=== PATIENT | female | born 1955 | race African-American/Black ===

== ENCOUNTER 2018-04-01 01:43 | Inpatient (IN) | payer OTHER ==
--- NOTE | 2018-03-23 15:30 | History & Physical Pre-Op ---
General Information and [facility] MD Statement: I have seen and personally examined KAILYN JAEGER and documented this H&P. The patient is a 62 year old F who presented with a patient stated chief complaint of neck stiffnes with progressively worsening right arm and hand weakness and maladroitness. Source of Information: patient Exam Limitations: no limitations History of Present Illness: Kailyn is a 62-year-old female who presents with progressively worsening right arm and right hand weakness and maladroitness. She has had similar symptoms in 1998 but states that over the last 6 months, she's had progressively worsening symptoms that include involuntary contractures of the right first and second digit with numbness and tingling in her right arm and hand. She also complains of some atrophy in her right hand and thumb. She complains of stiffness in her neck but no significant neck pain or radiating arm pain. She is having difficulty using her right dominant hand with writing or with fine dexterity. Her MRI shows severe spinal stenosis at C4-5, C5-6, and C6-7 with cord compression. Due to the fact that Kailyn has been experiencing progressively worsening motor dysfunction as well as her MRI findings, she wants nothing more to do with nonsurgical treatment and has been consented for an anterior cervical decompression and fusion C4-C7 with instrumentation and iliac crest bone grafting on 04/01/2018. Allergies/Medications Allergies: Coded Allergies: No Known Allergies (03/23/18) Home Med list Amlodipine Besylate 10 MG TABLET 1 TAB PO DAILY BP (Reported) Enalapril Maleate 20 MG TABLET 1 TAB PO BID BP (Reported) Furosemide 20 MG TABLET 1 TAB PO DAILY NEEDED WATER RETENTION (Reported) Meloxicam 15 MG TABLET 1 TAB PO DAILY PRN PAIN (Reported) Compliance With Home Meds: GOOD Past History Medical History Neurological: dizziness (postanesthesia vasovagal syndr) EENT: NONE Cardiovascular: hypertension, mitral regurgitation (with heart murmur), peripheral edema, history of hypotension with vasovagal episode Respiratory: NONE Gastrointestinal: NONE Hepatic: NONE Renal: nephrolithiasis Musculoskeletal: disk herniation, degen joint disease, osteoarthritis, spinal stenosis Psychiatric: NONE Endocrine: NONE Blood Disorders: NONE Cancer(s): NONE MEDICAL LOGISTICS SPECIALIST/Reproductive: NONE Surgical History Pertinent Surgical History: hernia repair-inguinal (left), hip replacement ( bilateral- right 2004, left ), tubal ligation Past Family/Social History Family History Relations & Conditions if any FATHER (hypertensionASCVD). , Age 94. MOTHER (Hypertension). Age 88. SISTER (Alive and Well). Age 60+. paternal grandmother (Diabetes Mellitus). . Psychosocial History Where Do You Live? 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 Exam & Diagnostic Data Last 24 Hrs of Vital Signs/I&O Height: 5'6" Weight: 194lbs. Physical Exam General Appearance Alert, Oriented X3, Cooperative, No Acute Distress Skin No Rashes, No Breakdown, No Significant Lesion HEENT Atraumatic, PERRLA, EOMI, Mucous Membr. moist/pink Neck Supple, No JVD, No thryomegaly, +2 Carotid Pulse wo Bruit Lymphatic Cervical nl Cardiovascular Regular Rate, Normal S1, Normal S2, No Murmurs Lungs Clear to Auscultation Abdomen Normal Bowel Sounds, Soft, No Tenderness, No Masses Neurological Normal Gait, Normal Speech, RIGHT HAND ATROPHY AND CONTRACTURE IN OPPOSITION OF THE THUMB TO THE ADDUCTOR OF THE THUMB., DECREASED BRACHIORADIALIS BICEPS, AND TRICEP REFLEX ON RIGHT., WEAK RIGHT BICEPS Extremities No Clubbing, No Cyanosis, No Edema, Normal Pulses Vascular Normal Pulses Medication List Current Psychiatric Med(s): Enalapril 20mg BID Amlodipine 10mg Daily Lasix 20mg Daily Mobic 15mg daily-stopped Vit. D 2000IU daily Vit. C 500mg daily Calcium 1000mg daily [place] daily-stopped 03/22/18 CoQ10 50mg daily- stopped 03/23/18 Assessment/Plan Assessment/Plan: Assessment: Severe spinal stenosis at C4-5, C5-6, and C6-7 with cord compression. Plan: Kailyn is scheduled for an anterior cervical decompression fusion C4-C7 with instrumentation and iliac crest bone grafting on 04/01/2018. We discussed the procedure in full detail as well as the pre-and postoperative course, follow -up care, and anticipated recovery. We also discussed the do's and don'ts and postoperative discharge instructions. We discussed the alternatives, benefits, and risks, not to exclude, , paralysis, infection, bleeding, continued pain , failure of the surgery, need for future surgery, DVT, vascular injury, CSF leak, hoarseness, dysphagia, etc., and given these risks, she still wishes to proceed. She has been seen and surgically cleared by her primary care physician, Dr. Sanchez. She tolerates Percocet and morphine for postoperative pain control. Any changes in this patient's plan is based on this patient's outpatient clinical presentation. As Ranked By This Provider Problem List: 1. Hypertension 2. Renal stones 3. Peripheral edema 4. Mitral valve insufficiency Copies To: Jd HOLLINS,Reji Attending MD Review Statement Attending Statement Attending MD Statement: examined this patient, discuss w/resident/PA/REGISTERED PHARMACY TECHNICIAN, agreed w/resident/PA/REGISTERED PHARMACY TECHNICIAN, reviewed images
[~2018-04-01] VITALS: Ht 167.6 cm; Wt 85.9 kg
[~2018-04-01 01:43] MED LIST: AMLODIPINE BESY10 M1 PO; ENALAPRIL MALEA20 M1 PO; FUROSEMIDE20 M1 PO; MELOXICAM15 M1 PO
--- NOTE | 2018-04-01 13:29 | Operative Report ---
Operative/Inv Procedure Report Surgery Date: 04/01/18 Name of Procedure: Anterior cervical discectomy C45 C5 6 C6 7. Interdiscal fusion C4 through C7. Disc fusion with iliac crest autograft. Harvesting of left anterior iliac crest reconstruction of with R donor graft Master graft. Anterior plate fixation C4 through C7. Use of fluoroscopy . Pre-Operative Diagnosis: Severe cervical spinal stenosis C4 through C7. Post-Operative Diagnosis: Same. Osteoporosis severe Estimated Blood Loss: 50ml to 100ml Surgeon/Fashion Stylist: Jd HOLLINS,Reji GREENFIELD Anesthesia: general endotracheal tube Operative/Procedure Note Note: After adequate general anesthesia was achieved the patient was placed in theAfter adequate general anesthesia was achieved the patient was placed in the supine position with the head turned to the left and the shoulders taped to the side. The right side of the neck and left anterior iliac crest were sterilely prepped and draped. An incision was made longitudinally carried sharply through the platysma and blunt dissection was carried to the midline where a bent needle was placed and fluoroscopy was used to identify surgical level. Annulotomy's and then discectomies were performed at C4-5 C5-6 and C6-7 there is severe stenosis posteriorly in the foramen consistent with the patient's symptoms at all 3 levels there is also severe osteoporosis. The dissections were carried through the annulus and posterior longitudinal ligament at all 3 levels there is severe congestion from degenerative material including bone and disc compressing the neural elements. An incision was made over the left anterior iliac crest a subperiosteal dissection was carried medial and lateral to the crest and the oscillating saw was used to collect 3 tricortical grafts for use in the cage placement. The wound was irrigated packed with Master graft and closed in layers with absorbable suture with roxana in the skin. Cage trials were used The cage trials were used cages were selected the repacked with cages were selected there packed with morselized bone graft and tamped into position well away from the neural canal. An anterior plate was then applied with 8 screws there was marginal fixation of all 8 screws. The construct was checked in AP and lateral planes with fluoroscopy is found to be appropriate the screws were locked at all 8 sites and closure of the platysma was performed with absorbable suture with nylon in the skin. and a closure the platysma was performed with absorbable suture with nylon in the skin. Closure was performed after copious irrigation of the wound. Sterile dressings a cervical collar were applied and the patient was transferred to the stretcher.
--- NOTE | 2018-04-01 14:35 | Patient Discharge Instructions ---
Acute Coronary Syndrome Inclusion Criteria At DC or during hospital stay patient has or had the following: ACS DIAGNOSIS No Discharge Core Measures Meds if any: Prescribed or Continued at Discharge Meds if any: NOT Prescribed or Continued at Discharge Congestive Heart Failure Inclusion Criteria At DC or during hospital stay patient has or had the following: CHF DIAGNOSIS No Discharge Core Measures Meds if any: Prescribed or Continued at Discharge Meds if any: NOT Prescribed or Continued at Discharge Cerebrovascular accident Inclusion Criteria At DC or during hospital stay patient has or had the following: CVA/TIA Diagnosis No Discharge Core Measures Meds if any: Prescribed or Continued at Discharge Meds if any: NOT Prescribed or Continued at Discharge Venous thromboembolism Inclusion Criteria VTE Diagnosis No VTE Type NONE VTE Confirmed by (Test) NONE Discharge Core Measures - Per Current guidelines, there needs to be overlap - treatment for the first 5 days of Warfarin therapy. - If discharged on Warfarin prior to 5 days of - overlap therapy, the patient will need to be - assessed for post discharge needs including - *Post discharge parental anticoagulation - *Warfarin and/or parental anticoagulation education - *Follow up date to check INR post discharge At least 5 days overlap therapy as Inpatient No Meds if any: Prescribed or Continued at Discharge Note: Overlap Therapy is Warfarin and Anticoagulant Meds if any: NOT Prescribed or Continued at Discharge
[2018-04-01] MEDS ORDERED: DULCOLAX10 M1 RC (14:39)
[2018-04-01] MEDS ORDERED: VITAMIN D31000 UNI2 PO (14:39)
[2018-04-01] MEDS ORDERED: OS-CAL 500+D31 EAC1 PO (14:39)
[2018-04-01] MEDS ORDERED: COLACE100 M1 PO (14:39)
[2018-04-01] MEDS ORDERED: MILK OF MA400 MG/52 PO (14:39)
[2018-04-01] MEDS ORDERED: MULTIVITAMINS1 EAC9 PO (14:39)
[2018-04-01] MEDS ORDERED: TYLENOL EXTRA500 M2 PO (14:39)
[2018-04-01] MEDS ORDERED: PERCOCET 5-3251 EACH PO (14:39)
--- NOTE | 2018-04-01 14:41 | RADIOLOGY REPORT ---
EXAMINATION: FL CERVICAL SPINE IN OPERATING ROOM CLINICAL INFORMATION: C5 through C7 fusion. COMPARISON: None. TECHNIQUE: Fluoroscopy was provided in the operating room. Intraoperative spot views were obtained of the cervical spine in AP and lateral projections. NUMBER OF FLUOROSCOPIC IMAGES: 3 images. FLUOROSCOPY TIME: 0.2 minutes. DOSE: 2.71 mGy; 0.0881 mGym2. FINDINGS AND IMPRESSION: The first spot film demonstrates a needle probe projected at the anterior margin of the C6-C7 interspace. The next 2 spot films demonstrate an anterior plate and screws from C4 to C7.
[2018-04-01 16:00] VITALS: BP 154/82
[2018-04-01 18:00] VITALS: BP 141/74
--- NOTE | 2018-04-01 19:56 | PN- Neurosurgical ---
Subjective Subjective: POC Pt in bed with complaint of only minimal pain in pelvis, no neck pain. Denies paresthesias. No nausea, tolerating diet. ambulating, voiding. Denies CP/SOB/LONGO Objective Vital Signs and I&Os Vital Signs Date Time Temp Pulse Resp B/P B/P Pulse O2 O2 Flow FiO2 Mean Ox Delivery Rate 04/01 1908 84 140/70 04/01 1800 98.8 82 18 141/74 98 Room Air 04/01 1600 98.0 90 18 154/82 92 Room Air Intake & Output 04/01 1600 04/01 0800 04/01 0000 03/31 1600 03/31 0800 03/31 0000 Intake Total Output Total Balance Patient 194 lb Weight Physical Exam: gen- NAD neck- soft collar in place. dresing clean and dry. no erythema or swelling noted resp- clear cardaic-rrr abd- soft, NT ext- 2+ radial pulse. distal sensory and motor function intact in all 4 extremities with strength equal bilaterally Current Medications: Current Medications Sig/Emma Start time Last Medication Dose Route Stop Time Status Admin Acetaminophen 650 MG Q4P PRN 04/01 1430 AC PO Amlodipine Besylate 10 MG DAILY 04/02 900 AC PO Bisacodyl 10 MG DAILY NEEDED PRN 04/01 1430 AC NJ Calcium 600 MG BID 04/01 2100 AC PO Cefazolin Sodium 1,000 MG IQ8 04/01 1600 AC 04/01 IV 04/02 0801 1736 Cefazolin Sodium 2,000 MG ONCE 03/31 0000 DC IV 03/31 2359 Cholecalciferol 1,000 IU DAILY 04/02 900 AC PO Docusate Sodium 100 MG BID 04/01 2100 AC PO Fentanyl Citrate 0 .STK-MED ONE 04/01 1032 DC .ROUTE Furosemide 20 MG DAILY 04/02 900 AC PO Hydromorphone HCl 0 .STK-MED ONE 04/01 1346 DC .ROUTE Lactated Ringer's 1,000 ML Q10H 04/01 1430 AC 04/01 IV 1630 Lisinopril 20 MG BID 04/01 1630 AC 04/01 PO 1908 Magnesium Hydroxide 30 ML Q8P PRN 04/01 1430 AC PO Midazolam HCl 0 .STK-MED ONE 04/01 1031 DC .ROUTE Morphine Sulfate 1 MG Q4 HRS NEEDED PRN 04/01 1430 AC IV Multivitamins 1 TAB DAILY 04/02 0900 AC PO Ondansetron HCl 4 MG Q6P PRN 04/01 1430 AC IV Oxycodone/ 1 TAB Q4P PRN 04/01 1430 AC Acetaminophen PO Oxycodone/ 2 TAB Q4P PRN 04/01 1430 AC 04/01 Acetaminophen PO 1713 Trimethobenzamide HCl 200 MG Q6P PRN 04/01 1430 AC IM Assessment/Plan Assessment/Plan 62yo F with hx of htn and mitral regurg now SP ACDF C4-7 with Left ICBG POD0. stable pain management reg diet, IVF overnight will DC in AM PT in AM soft collar for comfort 24h periop ABX- Ancef DC planning- likely home tomorrow if cleared by PT Core Measures Venous Thromboembolism VTE Risk Factors Surgery No Mechanical VTE Prophylaxis d/t N/A MechProphylax Ordered No VTE Pharm Prophylaxis d/t LowRisk-No Interven Req'd
[2018-04-01 20:00] VITALS: BP 149/72
[2018-04-02 02:00] VITALS: BP 139/71
[2018-04-02 07:34] VITALS: BP 158/74
[2018-04-02 09:34] VITALS: BP 158/74
--- NOTE | 2018-04-02 11:56 | Surg Short-stay <48hrs Dis Sum ---
Visit Information Visit Dates Admission Date: 04/01/18 Discharge Date: 04/02/18 Surgical Short Stay DC Summary Admission Diagnosis: Cervical stenosis Final Diagnosis: Same as above Procedure(s): Anterior cervical discectomy C45 C5 6 C6 7. Interdiscal fusion C4 through C7. Disc fusion with iliac crest autograft. Harvesting of left anterior iliac crest reconstruction of with R donor graft Master graft. Anterior plate fixation C4 through C7. Use of fluoroscopy . Summary/Significant Findings: Ms. Gil is a 62-year-old female was taken to the operating room on 04/01/[address] Miles and underwent cervical fusion for cervical stenosis. She tolerated the procedure well she was transferred to the floor. She was out of bed postop day 1 with soft collar tolerating diet and pain was controlled with p.o. pain medication. He was discharged in good condition with instructions related to her surgery. She will be discharged today back to the [facility], and return to [facility] in the next few days. Follow-up will be according to Dr. Miles. Events of hospital stay are otherwise unremarkable Condition at Discharge: Stable Discharge Disposition: home or self care Discharge instructions provided to patient/family: Yes Post discharge follow-up plan: Follow-up with Dr. Miles Copies to: Reji Miles MD
== END 2018-04-02 16:30 | DRG 473 ==
LOC: SDA 01:43 → ENRESERV 15:24 → ENTRNSPT 15:41 → EDTRNSPT 15:48 → EDTRNSPTSTS 15:48 → 2NB 15:53 → CMPTRNSPT 16:02 → 2NB 04-02 16:30
PROC: 0QB33ZZ Excision of Left Pelvic Bone, Percutaneous Approach (ICD-10-PCS; principal; 2018-04-01)
PROC: 0RG20A0 Fusion of 2 or more Cervical Vertebral Joints with Interbody Fusion Device, Anterior Approach, Anterior Column, Open Approach (ICD-10-PCS; principal; 2018-04-01)
PROC: 0RB30ZZ Excision of Cervical Vertebral Disc, Open Approach (ICD-10-PCS; principal; 2018-04-01)
DX: M48.02 Spinal stenosis, cervical region (principal); I10 Essential (primary) hypertension; I34.0 Nonrheumatic mitral (valve) insufficiency; N20.0 Calculus of kidney; Z96.643 Presence of artificial hip joint, bilateral; Z98.51 Tubal ligation status
CPT/HCPCS: 2NBSP; 36415; 76000; C1713; J0690; J2405; J3250; J3490; J7120